=== PATIENT | female | born 1945 | race Hispanic/Latino ===

== ENCOUNTER 2017-07-17 13:04 | Outpatient (CLI) | payer MEDICARE ==
--- NOTE | 2017-07-17 15:27 | BD ---
DEXA BONE DENSITY EXAM: Comparison: None. History: 72-year-old post-menopausal female for screening. Lumbar Spine: BMD (g/cm2) L1 0.676 T-Score: -2.9 L2 0.580 T-Score: -4.1 L3 0.681 T-Score: -3.7 L4 0.597 T-Score: -4.2 L1-L4 0.634 T-Score: -3.8 Femoral Neck: 0.509 T-Score: -3.1 Total Femur: 0.680 T-Score: -2.1 Impression: Osteoporosis. This patient has a 9-10 x increased risk of fracture when compared with young patients with normal bone mineral density. POS: CIRA
== END 2017-07-17 13:05 | disposition home or self-care (01) ==
LOC: MAMMO 13:04
PROVIDERS: ATTEND Family Medicine
DX: N95.9 Unspecified menopausal and perimenopausal disorder (principal); M81.0 Age-related osteoporosis without current pathological fracture
CPT/HCPCS: 77080

== ENCOUNTER 2017-11-11 16:17 | Outpatient (CLI) | payer MEDICARE, OTHER | END 2017-11-11 16:18 | disposition home or self-care (01) | LOC: BICMAMMO 16:17 | PROVIDERS: ATTEND Family Medicine | DX: Z12.31 Encounter for screening mammogram for malignant neoplasm of breast (principal) | CPT/HCPCS: 77063; 77067 ==

== ENCOUNTER 2017-12-30 11:57 | Outpatient (CLI) | payer MEDICARE, MEDICAID | END 2017-12-30 11:58 | disposition home or self-care (01) | LOC: BICMRI 11:57 | PROVIDERS: ATTEND Family Medicine | DX: M47.22 Other spondylosis with radiculopathy, cervical region (principal) | CPT/HCPCS: 72141 ==

== ENCOUNTER 2018-01-08 14:34 | Outpatient (CLI) | payer MEDICARE, MEDICAID | END 2018-01-08 14:35 | disposition home or self-care (01) | LOC: BICULT 14:34 | PROVIDERS: ATTEND Family Medicine | DX: R90.89 Other abnormal findings on diagnostic imaging of central nervous system; E07.89 Other specified disorders of thyroid | CPT/HCPCS: 76536 ==

== ENCOUNTER 2018-03-12 09:10 | Day surgery (SDC) | payer MEDICARE, MEDICAID ==
[2018-03-12] MEDS ORDERED: Sodium Bicarbonate 2.5 MEQ/5 ML VIAL ONE (10:05)
[2018-03-12] MEDS ORDERED: Lidocaine 1% MPF 2 ML VIAL ONE (10:06)
[2018-03-12 11:13] VITALS: TEMP 98
--- NOTE | 2018-03-12 11:33 | ULT ---
SONOGRAPHIC GUIDED FNA LEFT THYROID LOBE MASS: HISTORY: Thyroid mass. 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 Sterile technique, buffered local anesthesia, sonographic guidanc e, and an anterior approach were used to carefully advance a 25-gauge needle into the dominant mass l eft thyroid lobe. A total of 4 FNA passes were made and submitted to pathology for evaluation. Post procedure imaging shows no evidence of complication. The patient tolerated the procedure well and wa s dismissed in good condition. IMPRESSION: Technically successful sonographic-guided fine needle aspirate left thyroid lobe mass. Pathology is pending. POS: CIRA
== END 2018-03-12 10:11 | disposition home or self-care (01) ==
LOC: ULT 09:10
PROVIDERS: ATTEND Specialist
PROC: 0G9G3ZX Drainage of Left Thyroid Gland Lobe, Percutaneous Approach, Diagnostic (ICD-10-PCS; principal; 2018-03-12)
DX: E07.89 Other specified disorders of thyroid (principal); I10 Essential (primary) hypertension; E11.9 Type 2 diabetes mellitus without complications; E03.9 Hypothyroidism, unspecified; E78.00 Pure hypercholesterolemia, unspecified; F32.9 Major depressive disorder, single episode, unspecified; M19.90 Unspecified osteoarthritis, unspecified site; Z79.84 Long term (current) use of oral hypoglycemic drugs; Z79.899 Other long term (current) drug therapy; Z88.8 Allergy status to other drugs, medicaments and biological substances
CPT/HCPCS: 10022; 76942; 88173

== ENCOUNTER 2018-12-31 03:10 | Emergency (ER) | payer MEDICARE, OTHER ==
[2018-12-31] MEDS ORDERED: Adacel (T-DAP) 0.5 ML SYRINGE ONE (03:17)
[2018-12-31] MEDS ORDERED: Lidocaine 1% w/Epinephrine 1:100K 20 ML VIAL ONE (03:17)
[2018-12-31] MEDS ORDERED: Lidocaine 1% (PF) 30 ML VIAL ONE (03:20)
== END 2018-12-31 05:01 | disposition home or self-care (01) ==
LOC: ERS 03:10
DX: S61.411A Laceration without foreign body of right hand, initial encounter (principal); E11.9 Type 2 diabetes mellitus without complications; E03.9 Hypothyroidism, unspecified; E78.5 Hyperlipidemia, unspecified; I10 Essential (primary) hypertension; Z79.899 Other long term (current) drug therapy; Z79.84 Long term (current) use of oral hypoglycemic drugs; W26.8XXA Contact with other sharp object(s), not elsewhere classified, initial encounter
CPT/HCPCS: 12032; 90715; J2001

== ENCOUNTER 2019-02-13 00:30 | Emergency (ER) | payer MEDICARE, OTHER ==
[2019-02-13] MEDS ORDERED: Mag-Al 1200 mg/1200 mg/30 ML UDCUP ONE (01:49)
[2019-02-13] MEDS ORDERED: Lidocaine Viscous Sol 2% 15 ml UD Cup ONE (01:50)
[2019-02-13 01:58] LABS: #Basophils 0.1 thou/uL (0.0-0.2); #Eosinphils 0.3 thou/uL (0.0-0.7); #Lymphocytes 2.6 thou/uL (1.20-3.40); #Monocytes 0.7 thou/uL (0.11-0.59); #Neutrophils 3.5 thou/uL (1.40-6.50); %Basophils 0.7 % (0.0-1.0); %Eosinophils 3.9 % (0.0-10.0); %Lymphocytes 36.2 % (21.0-51.0); %Monocytes 10.1 % (0.0-10.0); Hemoglobin 15.1 g/dL (12.0-16.0); Mean Corpuscular HGB CONC 34.2 g/dL (32.0-36.0); Mean Corpuscular Hemoglobin 31.9 pg (27.0-31.0); Mean Corpuscular Volume 93.4 fL (78.0-98.0); Mean Platelet Volume 7.8 fL (7.4-10.4); Platelet Count 198 thou/uL (130-400); RBC Distribution Width 11.8 % (11.5-14.5); Red Blood Cell (RBC) Count 4.74 mill/uL (4.20-5.40); White Blood Cell (WBC) Count 7.2 thou/uL (4.8-10.8)
[2019-02-13 02:25] LABS: ALT (SGPT) 37 U/L (8-55); AST (SGOT) 30 U/L (5-34); Albumin 4.2 g/dL (3.4-4.8); Alkaline Phosphatase 167 U/L (40-150); Anion Gap 12 mmol/L (10-20); BUN (Urea Nitrogen) 19 mg/dL (9.8-20.1); Bilirubin, Total 0.2 mg/dL (0.2-1.2); Calc. Creatinine Clearance 0 mL/min (70-130); Carbon Dioxide 26 mmol/L (23-31); Chloride 104 mmol/L (98-107); Estimated GFR-MDRD 85; Globulin 3.6 g/dL (2.4-3.5); Glucose 200 mg/dL (83-110); Lipase 47 U/L (8-78); Potassium 3.8 mmol/L (3.5-5.1); Protein, Total 7.8 g/dL (6.0-8.3); Sodium 138 mmol/L (136-145)
--- NOTE | 2019-02-13 08:53 | RAD ---
PA AND LATERAL CHEST: Date: 02/13/19 INDICATION: Chest pain. COMPARISON: None. FINDINGS: There are low lung volumes. Heart size accentuated by the hypoventilation. There are vascular calcifi cations involving the aortic arch. Visualized upper abdomen is unremarkable. No acute fracture is carmita dent. IMPRESSION: No definite acute cardiopulmonary abnormality. Hypoventilation. POS: BH
== END 2019-02-13 06:59 | disposition home or self-care (01) ==
LOC: ERS 00:30
DX: R07.89 Other chest pain (principal); E11.9 Type 2 diabetes mellitus without complications; E03.9 Hypothyroidism, unspecified; E78.5 Hyperlipidemia, unspecified; I10 Essential (primary) hypertension; Z79.899 Other long term (current) drug therapy
CPT/HCPCS: 36415; 71046; 80053; 83690; 84484; 85025; 93005

== ENCOUNTER 2019-03-09 16:10 | Outpatient (CLI) | payer MEDICARE ==
--- NOTE | 2019-03-09 16:44 | MMO ---
Bilateral MAMMO Bilat Screen DDI+LEYDI. CLINICAL HISTORY: Patient is 73 years old and is seen for screening. The patient has no family history of breast cancer. The patient has no personal history of cancer. VIEWS: The views performed were: bilateral craniocaudal with tomosynthesis and bilateral mediolateral oblique with tomosynthesis. FILMS COMPARED: The present examination has been compared to prior imaging studies performed at [facility] on 10/30/2016 and 11/11/2017. MAMMOGRAM FINDINGS: The breasts are almost entirely fat. There are stable benign appearing calcifications seen in both breasts. There are also vascular calcifications. There are no suspicious masses, suspicious calcifications, or new areas of architectural distortion. IMPRESSION: THERE IS NO MAMMOGRAPHIC EVIDENCE OF MALIGNANCY. A ROUTINE FOLLOW-UP MAMMOGRAM IN 1 YEAR IS RECOMMENDED. THE RESULTS OF THIS EXAM WERE SENT TO THE PATIENT. ACR BI-RADS Category 2 - Benign finding MAMMOGRAPHY NOTE: 1. A negative mammogram report should not delay a biopsy if a dominant of clinically suspicious mass is present. 2. Approximately 10% to 15% of breast cancers are not detected by mammography. 3. Adenosis and dense breasts may obscure an underlying neoplasm.
== END 2019-03-09 16:11 | disposition home or self-care (01) ==
LOC: BICMAMMO 16:10
PROVIDERS: ATTEND Family Medicine
DX: Z12.31 Encounter for screening mammogram for malignant neoplasm of breast (principal)
CPT/HCPCS: 77063; 77067

== ENCOUNTER 2019-05-31 13:30 | Outpatient (CLI) | payer MEDICARE, MEDICAID ==
--- NOTE | 2019-05-31 14:14 | RAD ---
LEFT HAND THREE VIEWS: 05/31/19 HISTORY: Left hand pain, particularly the third metacarpal. FINDINGS/IMPRESSION: No fracture, dislocation, or bony destruction seen. Mild degenerative changes are present. POS: OFF
== END 2019-05-31 13:31 | disposition home or self-care (01) ==
LOC: RAD 13:30
PROVIDERS: ATTEND Family Medicine
DX: M79.642 Pain in left hand (principal); M19.042 Primary osteoarthritis, left hand

== ENCOUNTER 2019-08-10 15:22 | Outpatient (CLI) | payer MEDICARE, MEDICAID ==
--- NOTE | 2019-08-10 15:48 | BD ---
Exam: DEXA Bone Density 08/10/19 HISTORY: Osteoporosis screening. COMPARISON: DEXA study from 07/17/2017. FINDINGS: Lumbar Spine: BMD (g/cm2) T-SCORE Z-SCORE L1 0.639 -3.2 -1.0 L2 0.589 -4.0 -1.6 L3 0.657 -3.9 -1.4 L4 0.578 -4.4 -1.8 L1-L4 0.617 -3.9 -1.5 Change from comparison is -2.8%. Left Femoral Neck: 0.439 -3.7 -1.6 Total Left Femur: 0.665 -2.3 -0.4 Change from comparison is -2.2%. Impression: Osteoporosis. POS: OFF
== END 2019-08-10 15:23 | disposition home or self-care (01) ==
LOC: BICMAMMO 15:22
PROVIDERS: ATTEND Family Medicine
DX: M81.0 Age-related osteoporosis without current pathological fracture (principal)
CPT/HCPCS: 77080

== ENCOUNTER 2022-10-27 15:21 | Outpatient (CLI) | payer MEDICARE | END 2022-10-27 15:22 | disposition home or self-care (01) | LOC: BICMAMMO 15:21 | PROVIDERS: ATTEND Family Medicine | DX: M81.0 Age-related osteoporosis without current pathological fracture (principal) | CPT/HCPCS: 77080 ==

== ENCOUNTER 2023-12-07 11:05 | Outpatient (CLI) | payer MEDICARE | END 2023-12-07 11:06 | disposition home or self-care (01) | LOC: MRI 11:05 | PROVIDERS: ATTEND Family Medicine | DX: R41.0 Disorientation, unspecified (principal) | CPT/HCPCS: 70553 ==